=== PATIENT | male | born 1965 | race Caucasian/White ===

== ENCOUNTER 2016-10-28 20:06 | Inpatient (IN) | payer MEDICARE ==
[2016-10-28 21:09] LABS: BASO % 0.7 % (0.0-2.0); EOS # 0.2 K/uL (0.0-0.7); EOS % 5.4 % (0.0-4.0); HEMATOCRIT 19.5 % (35.0-51.0); LYMPH # 0.9 K/uL (1.0-4.3); LYMPH % 31.2 % (20.0-40.0); MEAN CELL VOLUME 88.3 fL (80.0-94.0); MEAN CORPUSCULAR HEMOGLOBIN 28.4 pg (27.0-31.0); MEAN CORPUSCULAR HGB CONC 32.1 g/dL (33.0-37.0); MEAN PLATELET VOLUME 7.1 fL (7.2-11.7); MONO # 0.2 K/uL (0.0-0.8); MONO % 7.4 % (0.0-10.0); WHITE BLOOD COUNT 2.9 K/uL (4.8-10.8)
[2016-10-28 21:14] LABS: POTASSIUM 5.3 mmol/L (3.6-5.2)
[2016-10-28 21:17] LABS: ALB/GLOB RATIO 1.4 (1.0-2.1); BILIRUBIN,TOTAL 0.8 mg/dL (0.2-1.3); TOTAL PROTEIN 7.2 g/dL (6.3-8.3)
[2016-10-28 21:18] LABS: CALCIUM 9.1 mg/dl (8.6-10.4)
[2016-10-28 21:29] LABS: TROPONIN I 0.016 ng/mL (0.00-0.120)
--- NOTE | 2016-10-28 22:19 | C.PDOC ---
Time Seen by Provider: 10/28/16 20:43 Chief Complaint (Nursing): Shortness Of Breath History Per: Patient Onset/Duration Of Symptoms: Hrs (since this morning) Current Symptoms Are (Timing): Still Present Initiating Event: Other (Missed dialysis today) Exacerbating Factor(s): Exertion, Laying Flat Severity: Moderate Additional History Per: Prior Records Past Medical History Reviewed: Historical Data, Nursing Documentation, Vital Signs Vital Signs: Last Vital Signs Temp 97.5 F L 10/28/16 20:26 Pulse 86 10/28/16 21:05 Resp 22 10/28/16 20:42 BP 166/70 H 10/28/16 21:05 Pulse Ox 100 10/28/16 21:05 - Medical History PMH: HTN, End Stage Renal Disease (on dialysis Tue//Tue.) Family History: States: Unknown Family Hx - Social History Hx Tobacco Use: No Hx Alcohol Use: No Hx Substance Use: No - Immunization History Hx Tetanus Toxoid Vaccination: No Hx Influenza Vaccination: No Hx Pneumococcal Vaccination: No Review Of Systems Except As Marked, All Systems Reviewed And Found Negative. Constitutional: Positive for: Malaise. Negative for: Fever Cardiovascular: Negative for: Chest Pain Respiratory: Positive for: Shortness of Breath. Negative for: Hemoptysis Gastrointestinal: Negative for: Vomiting, Abdominal Pain Musculoskeletal: Negative for: Neck Pain Skin: Negative for: Rash Neurological: Negative for: Weakness, Numbness, Seizures, Altered Mental Status , Headache Physical Exam - Physical Exam Appears: No Acute Distress, Chronically Ill Skin: Warm, Dry, Pale Head: Atraumatic, Normacephalic Eye(s): bilateral: PERRL, EOMI Neck: Normal ROM, Supple Cardiovascular: Rhythm Regular Respiratory: No Accessory Muscle Use, Rales (at b/l bases) Gastrointestinal/Abdominal: Soft, No Tenderness Extremity: Normal ROM, Other (Left arm dialysis fistula with good thrill) Neurological/Psych: Oriented x3, Normal Motor, Normal Sensation ED Course And Treatment - Laboratory Results Result Diagrams: 10/28/16 21:01 10/28/16 21:01 Lab Interpretation: Abnormal Interpretation Of Abnormal: Anemia. Elevated BUN and Cr. ECG: Interpreted By Me, Viewed By Me ECG Rhythm: Sinus Rhythm ECG Interpretation: No Acute Changes Rate From EC O2 Sat by Pulse Oximetry: 100 Pulse Ox Interpretation: Normal - Radiology CXR: Interpreted by Me, Viewed By Me CXR Interpretation: Yes: No Acute Disease Progress - Interventions Interventions:: Observation, Oxygen - Data Reviewed Data Reviewed: Lab, Diagnostic imaging, EKG, Old records - Patient Status Patient status: Partially improved - Continuity of Care Discussed patient case with:: Patient, ED Nurse, PMD Disposition Discussed With : Annika Valente Comment: He accepted pt on his service. He is planning on dialyzing pt in the AM and giving blood transfusion during dialysis. Doctor Will See Patient In The: Hospital Counseled Patient/Family Regarding: Studies Performed, Diagnosis - Disposition Disposition: HOSPITALIZED Disposition Time: 22:23 Condition: GUARDED - Clinical Impression Clinical Impression: Anemia, ESRD needing dialysis, Dyspnea
[2016-10-29] MEDS ORDERED: Epoetin Alfa 10,000 unit/ml Dialysis IV SCH (09:00)
[2016-10-29] MEDS: (Novolin 70/30) NPH/Regular 70/30 Units/ml 10 ml vial SC SCH ×2 (09:11→17:43)
--- NOTE | 2016-10-29 10:25 | RAD ---
PROCEDURE: CHEST RADIOGRAPH, 1 VIEW HISTORY: SOB, ESRD COMPARISON: None available. FINDINGS: There is a left subclavian endovascular stent graft. LUNGS: The lungs are clear. PLEURA: No pneumothorax or pleural fluid seen. CARDIOVASCULAR: Normal. OSSEOUS STRUCTURES: No significant abnormalities. VISUALIZED UPPER ABDOMEN: Normal. OTHER FINDINGS: None. IMPRESSION: No acute findings.
[2016-10-29 11:53] LABS: POTASSIUM 3.7 mmol/L (3.6-5.2)
[2016-10-29 11:55] LABS: BILIRUBIN,TOTAL 0.8 mg/dL (0.2-1.3)
[2016-10-29 11:56] LABS: ALB/GLOB RATIO 1.2 (1.0-2.1); CALCIUM 9.2 mg/dl (8.6-10.4); TOTAL PROTEIN 7.3 g/dL (6.3-8.3)
[2016-10-29 14:01] VITALS: O2SAT 100
[2016-10-29 15:50] VITALS: BP 173/83; RESP 20; TEMP 97.6
[2016-10-29 16:36] VITALS: PULSE 80
--- NOTE | 2016-10-29 17:32 | CP.PCM.HP ---
Past Patient History - Past Medical History & Family History Past Medical History?: Yes - Past Social History Smoking Status: Never Smoked - CARDIAC Hx Hypertension: Yes - PULMONARY Hx Respiratory Disorders: No - NEUROLOGICAL Hx Neurological Disorder: No - HEENT Hx HEENT Problems: No - RENAL Hx Chronic Kidney Disease: Yes Type of Dialysis Access: AV Shunt - ENDOCRINE/METABOLIC Hx Endocrine Disorders: Yes Hx Diabetes Mellitus Type 1: Yes - HEMATOLOGICAL/ONCOLOGICAL Hx Blood Disorders: No - INTEGUMENTARY Hx Dermatological Problems: No - MUSCULOSKELETAL/RHEUMATOLOGICAL Hx Musculoskeletal Disorders: No Hx Falls: No - GASTROINTESTINAL Hx Gastrointestinal Disorders: No - GENITOURINARY/GYNECOLOGICAL Hx Genitourinary Disorders: No - PSYCHIATRIC Hx Psychophysiologic Disorder: No Hx Substance Use: No - SURGICAL HISTORY Hx Surgeries: No - ANESTHESIA Hx Anesthesia: Yes Hx Anesthesia Reactions: No Hx Malignant Hyperthermia: No Has any member of the family had a problem w/ anesthesia?: No Meds Allergies/Adverse Reactions: Allergies Allergy/AdvReac Type Severity Reaction Status Date / Time No Known Allergies Allergy Verified 10/28/16 20:29 Physical Exam - Constitutional Appears: Well - Head Exam Head Exam: ATRAUMATIC, NORMAL INSPECTION, NORMOCEPHALIC - Eye Exam Eye Exam: EOMI, Normal appearance, PERRL Pupil Exam: NORMAL ACCOMODATION, PERRL - ENT Exam ENT Exam: Mucous Membranes Moist, Normal Exam - Neck Exam Neck exam: Positive for: Normal Inspection - Respiratory Exam Respiratory Exam: Decreased Breath Sounds - Cardiovascular Exam Cardiovascular Exam: REGULAR RHYTHM, +S1, +S2 - GI/Abdominal Exam GI & Abdominal Exam: Diminished Bowel Sounds, Soft - Rectal Exam Rectal Exam: Deferred Results - Vital Signs Recent Vital Signs: Last Vital Signs Temp 97.6 F 10/29/16 15:10 Pulse 80 10/29/16 15:30 Resp 20 10/29/16 15:10 BP 173/83 H 10/29/16 15:10 Pulse Ox 100 10/29/16 15:10 - Labs Result Diagrams: 10/28/16 21:01 10/29/16 11:27 Labs: Laboratory Results - last 24 hr 10/29/16 10/29/16 10/29/16 02:09 06:03 11:00 Sodium Potassium Chloride Carbon Dioxide Anion Gap BUN Creatinine Est GFR ( Amer) Est GFR (Non-Af Amer) POC Glucose (mg/dL) 254 H 163 H 190 H Random Glucose Calcium Total Bilirubin AST ALT Alkaline Phosphatase Total Protein Albumin Globulin Albumin/Globulin Ratio Hepatitis A IgM Ab Hep Bs Antigen Hep Bs Antibody Hep B Core IgM Ab Hepatitis C Antibody HIV 1&2 Antibody Screen 10/29/16 10/29/16 10/29/16 11:24 11:24 11:24 Sodium Potassium Chloride Carbon Dioxide Anion Gap BUN Creatinine Est GFR ( Amer) Est GFR (Non-Af Amer) POC Glucose (mg/dL) Random Glucose Calcium Total Bilirubin AST ALT Alkaline Phosphatase Total Protein Albumin Globulin Albumin/Globulin Ratio Hepatitis A IgM Ab Negative Hep Bs Antigen Negative Hep Bs Antibody Positive Hep B Core IgM Ab Negative Hepatitis C Antibody Reactive H HIV 1&2 Antibody Screen Reactive H 10/29/16 10/29/16 11:27 16:01 Sodium 143 Potassium 3.7 Chloride 103 Carbon Dioxide 26 Anion Gap 18 BUN 31 H Creatinine 5.9 H Est GFR ( Amer) 12 Est GFR (Non-Af Amer) 10 POC Glucose (mg/dL) 92 Random Glucose 151 H Calcium 9.2 Total Bilirubin 0.8 AST 21 ALT 33 Alkaline Phosphatase 63 Total Protein 7.3 Albumin 4.0 Globulin 3.3 Albumin/Globulin Ratio 1.2 Hepatitis A IgM Ab Hep Bs Antigen Hep Bs Antibody Hep B Core IgM Ab Hepatitis C Antibody HIV 1&2 Antibody Screen
--- NOTE | 2016-10-29 17:35 | CARD ---
APPROVED REPORT EKG Measurement Heart [id number] <Conclusion> Normal sinus rhythm Normal ECG
[2016-10-29 17:40] LABS: HEMATOCRIT 28.2 % (35.0-51.0)
[2016-10-30] MEDS ORDERED: Pneumococcal 23-Valent Vaccine IM ONE (10:00)
== END 2016-10-29 22:36 | disposition left against medical advice (07) | DRG 682 ==
LOC: C.ER 20:06 → C.6T 22:23
PROVIDERS: ADMIT Internal Medicine Nephrology; ATTEND Internal Medicine Nephrology
PROC: 5A1D60Z (ICD-10-PCS; principal; 2016-10-29)
PROC: 30233N1 Transfusion of Nonautologous Red Blood Cells into Peripheral Vein, Percutaneous Approach (ICD-10-PCS; 2016-10-29)
DX: I12.0 Hypertensive chronic kidney disease with stage 5 chronic kidney disease or end stage renal disease (principal); N18.6 End stage renal disease; D63.1 Anemia in chronic kidney disease; R06.00 Dyspnea, unspecified; Z99.2 Dependence on renal dialysis

== ENCOUNTER 2016-11-01 00:59 | Inpatient (IN) | payer MEDICARE ==
[2016-11-01] MEDS ORDERED: Albuterol 0.042% Inhal Sol (1.25 mg/3 mL) UD IH STA (01:45)
--- NOTE | 2016-11-01 01:49 | C.PDOC ---
History Of Present Illness A 50 y/o male presents to the ER c/o SOB that began 2 pm today. Pt notes having his last dialysis last tuesday. Pt denies pain, fever, chills, nausea, chest pain , light headedness, palpitations, or LOC. Time Seen by Provider: 11/01/16 01:47 Chief Complaint (Nursing): Chest Pain History Per: Patient History/Exam Limitations: no limitations Onset/Duration Of Symptoms: Hrs Current Symptoms Are (Timing): Still Present Severity: Mild Recent travel outside of the [place]: No Additional History Per: Patient Past Medical History Reviewed: Historical Data, Nursing Documentation, Vital Signs Vital Signs: Last Vital Signs Temp 98.2 F 11/01/16 05:30 Pulse 87 11/01/16 05:30 Resp 16 11/01/16 05:30 BP 157/75 H 11/01/16 05:30 Pulse Ox 100 11/01/16 05:30 - Medical History PMH: HTN, End Stage Renal Disease, Chronic Kidney Disease Family History: States: Unknown Family Hx - Social History Hx Tobacco Use: No Hx Alcohol Use: No Hx Substance Use: No - Immunization History Hx Tetanus Toxoid Vaccination: No Hx Influenza Vaccination: No Hx Pneumococcal Vaccination: No Review Of Systems Except As Marked, All Systems Reviewed And Found Negative. Constitutional: Negative for: Fever, Chills, Other (Pain) Cardiovascular: Negative for: Chest Pain, Palpitations, Light Headedness Respiratory: Positive for: Shortness of Breath Gastrointestinal: Negative for: Nausea, Vomiting Neurological: Negative for: Other (LOC) Physical Exam - Physical Exam Appears: Non-toxic, No Acute Distress Skin: Warm, Dry Head: Atraumatic, Normacephalic Eye(s): bilateral: Normal Inspection, PERRL, EOMI Chest: Symmetrical Cardiovascular: Rhythm Regular, No Murmur Respiratory: Decreased Breath Sounds, No Accessory Muscle Use, No Wheezing Gastrointestinal/Abdominal: Soft, No Tenderness, No Guarding, No Rebound Neurological/Psych: Oriented x3, Normal Speech, Normal Cognition ED Course And Treatment - Laboratory Results Result Diagrams: 11/01/16 02:06 11/01/16 02:06 O2 Sat by Pulse Oximetry: 96 (RA) Pulse Ox Interpretation: Normal - CT Scan/US CT Head w/o contrast Other Rad Studies (CT/US): Interpreted By Me, Read By Radiologist CT/US Interpretation: EXAM: CT Chest Without Intravenous Contrast. CLINICAL HISTORY: 50 years old, male; Signs and symptoms; Cough and shortness of breath ; Symptoms not specified;. Additional info: SOB, esrd. TECHNIQUE: Axial computed tomography images of the chest without intravenous contrast. This CT exam was. performed using one or more of the following dose reduction techniques: automated exposure. control, adjustment of the mA and/or kV according to patient size, and/or use of iterative. reconstruction technique. Coronal and sagittal reformatted images were created and reviewed. COMPARISON: No relevant prior studies available. FINDINGS: Lungs: There are small, right greater than left pleural effusions with associated bibasilar. compressive atelectasis. It is difficult to exclude a component of pneumonia or aspiration in the. bases. There are fairly diffuse groundglass opacities in the lungs, nonspecific but can be seen in. atypical infectious process, pulmonary edema, vascular or small airways disease. There is mild. biapical scarring. Pleural space: See above. Heart: There is mild coronary artery calcification. The heart is borderline in size. No significant. pericardial effusion. Mediastinum: The esophagus is normal. Thyroid: Thyroid is normal in size and position. Bones/joints: Unremarkable. No acute fracture. No dislocation. Soft tissues: Unremarkable. Vasculature: There is a left subclavian vein stent. Thoracic aorta is mildly atherosclerotic without. aneurysm. Lymph nodes: There is mild left axillary lymphadenopathy. There is mild mediastinal. lymphadenopathy. Kidneys and ureters: There appear to be multiple left cortical and parapelvic cysts. Upper abdomen: Scans through the upper abdomen demonstrate no definite acute abnormalities. IMPRESSION: 1. There is mild left axillary lymphadenopathy. 2. There is mild mediastinal lymphadenopathy. 3. There are small, right greater than left pleural effusions with associated bibasilar compressive. atelectasis. It is difficult to exclude a component of pneumonia or aspiration in the bases. 4. There are fairly diffuse groundglass opacities in the lungs, nonspecific but can be seen in atypical. infectious process, pulmonary edema, vascular or small airways disease. 5. Additional incidental and/or chronic findings as described. Medical Decision Making Medical Decision Making: Impression: 50 y/o male c/o SOB that occurred today Plans: -EKG -Blood labs -CXR -IV fluids -Reassess Disposition Discussed With : Annika Valente Doctor Will See Patient In The: Hospital Counseled Patient/Family Regarding: Diagnosis - Disposition Disposition: HOSPITALIZED Disposition Time: 05:12 Condition: STABLE - Clinical Impression Clinical Impression: ESRD (end stage renal disease) on dialysis, CHF (congestive heart failure), Pleural effusion - Scribe Statement The provider has reviewed the documentation as recorded by the Scribe Jaya josé All medical record entries made by the Ezekielibe were at my direction and personally dictated by me. I have reviewed the chart and agree that the record accurately reflects my personal performance of the history, physical exam, medical decision making, and the department course for this patient. I have also personally directed, reviewed, and agree with the discharge instructions and disposition.
[2016-11-01] MEDS ORDERED: Albuterol 0.083% Inhal Sol (2.5 mg/3 mL) UD ONE (02:23)
[2016-11-01 02:27] LABS: BASO % 0.7 % (0.0-2.0); EOS # 0.1 K/uL (0.0-0.7); EOS % 1.8 % (0.0-4.0); HEMATOCRIT 30.7 % (35.0-51.0); LYMPH # 1.2 K/uL (1.0-4.3); LYMPH % 23.8 % (20.0-40.0); MEAN CELL VOLUME 87.2 fL (80.0-94.0); MEAN CORPUSCULAR HEMOGLOBIN 28.5 pg (27.0-31.0); MEAN CORPUSCULAR HGB CONC 32.8 g/dL (33.0-37.0); MEAN PLATELET VOLUME 7.5 fL (7.2-11.7); MONO # 0.4 K/uL (0.0-0.8); MONO % 7.3 % (0.0-10.0); RED CELL DISTRIBUTION WIDTH 14.2 % (11.5-14.5); WHITE BLOOD COUNT 4.9 K/uL (4.8-10.8)
[2016-11-01 02:31] LABS: CHLORIDE 103 mmol/L (98-107); SODIUM 140 mmol/L (132-148)
[2016-11-01 02:33] LABS: BILIRUBIN,TOTAL 1.2 mg/dL (0.2-1.3); GFR AFRICAN-AMERICAN 7
[2016-11-01 02:34] LABS: ALB/GLOB RATIO 1.3 (1.0-2.1); ALKALINE PHOSPHATASE 63 U/L (38-126); ALT/SGPT 36 U/L (21-72); AST/SGOT 27 U/L (17-59); BLOOD UREA NITROGEN 54 mg/dL (9-20); CARBON DIOXIDE 18 mmol/L (22-30); GLUCOSE,RANDOM 76 mg/dL (75-110); TOTAL PROTEIN 7.7 g/dL (6.3-8.3)
[2016-11-01 02:35] LABS: CALCIUM 9.5 mg/dl (8.6-10.4)
--- NOTE | 2016-11-01 05:01 | CT ---
EXAM: CT Chest Without Intravenous Contrast CLINICAL HISTORY: 50 years old, male; Signs and symptoms; Cough and shortness of breath; Symptoms not specified; Additional info: SOB, esrd TECHNIQUE: Axial computed tomography images of the chest without intravenous contrast. This CT exam was performed using one or more of the following dose reduction techniques: automated exposure control, adjustment of the mA and/or kV according to patient size, and/or use of iterative reconstruction technique. Coronal and sagittal reformatted images were created and reviewed. COMPARISON: No relevant prior studies available. FINDINGS: Lungs: There are small, right greater than left pleural effusions with associated bibasilar compressive atelectasis. It is difficult to exclude a component of pneumonia or aspiration in the bases. There are fairly diffuse groundglass opacities in the lungs, nonspecific but can be seen in atypical infectious process, pulmonary edema, vascular or small airways disease. There is mild biapical scarring. Pleural space: See above. Heart: There is mild coronary artery calcification. The heart is borderline in size. No significant pericardial effusion. Mediastinum: The esophagus is normal. Thyroid: Thyroid is normal in size and position. Bones/joints: Unremarkable. No acute fracture. No dislocation. Soft tissues: Unremarkable. Vasculature: There is a left subclavian vein stent. Thoracic aorta is mildly atherosclerotic without aneurysm. Lymph nodes: There is mild left axillary lymphadenopathy. There is mild mediastinal lymphadenopathy. Kidneys and ureters: There appear to be multiple left cortical and parapelvic cysts. Upper abdomen: Scans through the upper abdomen demonstrate no definite acute abnormalities. IMPRESSION: 1. There is mild left axillary lymphadenopathy. 2. There is mild mediastinal lymphadenopathy. 3. There are small, right greater than left pleural effusions with associated bibasilar compressive atelectasis. It is difficult to exclude a component of pneumonia or aspiration in the bases. 4. There are fairly diffuse groundglass opacities in the lungs, nonspecific but can be seen in atypical infectious process, pulmonary edema, vascular or small airways disease. 5. Additional incidental and/or chronic findings as described.
[2016-11-01 06:37] VITALS: RESP 20
--- NOTE | 2016-11-01 10:20 | RAD ---
PROCEDURE: CHEST RADIOGRAPH, 1 VIEW HISTORY: Shortness of breath COMPARISON: None available. FINDINGS: LUNGS: Moderate venous congestion. PLEURA: No pneumothorax or pleural fluid seen. CARDIOVASCULAR: Normal. OSSEOUS STRUCTURES: No significant abnormalities. VISUALIZED UPPER ABDOMEN: Normal. OTHER FINDINGS: Left axillary stent in place. IMPRESSION: Moderate venous congestion.
[2016-11-01] MEDS ORDERED: INSULIN ISOPHANE SC SCH (12:00)
[2016-11-01] MEDS ORDERED: INSULIN REGULAR SC SCH (12:00)
--- NOTE | 2016-11-01 16:13 | CP.PCM.PN ---
Subjective - Date & Time of Evaluation Date of Evaluation: 11/01/16 Time of Evaluation: 16:12 - Subjective Subjective: 50 Y/O MALE SEEN AND EXAMINED TODAY BY DR HADDAD, 50 Y/O MALE ADMITTED FOR SOB, PMHX ESRD, ON HD, LAST HD ON TUESDAY, PT WAS DIALYZED TODAY, DENIES ANY CP,SOB, RESP EASY AND UNLABORED, PT D/C HOME PER DR HADDAD, EDUCATED TO CONTINUE HD T/ TH/SAT AT [facility], CONTINUE HOME MEDS, F/U W/DR HADDAD IN THE OFFICE, RETURN TO ED IF ANY WORSENING S/S, AGREE, VERBALIZE UNDERSTANDING. Objective - Vital Signs/Intake and Output Vital Signs (last 24 hours): Temp Pulse Resp BP Pulse Ox 98.3 F 92 H 20 165/75 H 100 11/01/16 10:35 11/01/16 10:35 11/01/16 10:35 11/01/16 10:35 11/01/16 10:35 - Medications Medications: Current Medications Amlodipine Besylate (Norvasc) 10 mg PO DAILY [facility] Last Admin: 11/01/16 12:29 Dose: 10 mg Insulin Human Isoph/Insulin Regular (Novolin 70/30 (70/30 Units/Ml) 10 Ml) 25 units SC BIDAC [facility] Pneumococcal Polyvalent Vaccine (Pneumovax 23 Vaccine) 0.5 ml IM .ONCE ONE Stop: 11/03/16 14:01 - Labs Labs: PT 11.3 SECONDS (9.7-12.2) 11/01/16 02:06 INR 1.0 11/01/16 02:06 APTT 31 SECONDS (21-34) 11/01/16 02:06
[2016-11-01] MEDS ORDERED: (Novolin 70/30) NPH/Regular 70/30 Units/ml 10 ml vial SC SCH (16:30)
[2016-11-01 16:31] VITALS: BP 159/71; PULSE 91; TEMP 98.2; O2SAT 94
[2016-11-01] MEDS ORDERED: Pneumococcal 23-Valent Vaccine IM ONE (17:08)
--- NOTE | 2016-11-01 17:37 | CP.PCM.HP ---
Past Patient History - Past Medical History & Family History Past Medical History?: Yes - Past Social History Smoking Status: Never Smoked - CARDIAC Hx Cardiac Disorders: Yes Hx Hypertension: Yes - PULMONARY Hx Respiratory Disorders: No - NEUROLOGICAL Hx Neurological Disorder: No - HEENT Hx HEENT Problems: No - RENAL Hx Chronic Kidney Disease: Yes Hx Dialysis: Yes Date of Last Dialysis Treatment: 11/01/16 - ENDOCRINE/METABOLIC Hx Endocrine Disorders: Yes Hx Diabetes Mellitus Type 1: Yes - HEMATOLOGICAL/ONCOLOGICAL Hx Blood Disorders: No - INTEGUMENTARY Hx Dermatological Problems: No - MUSCULOSKELETAL/RHEUMATOLOGICAL Hx Musculoskeletal Disorders: No Hx Falls: No - GASTROINTESTINAL Hx Gastrointestinal Disorders: No - GENITOURINARY/GYNECOLOGICAL Hx Genitourinary Disorders: No - PSYCHIATRIC Hx Psychophysiologic Disorder: No Hx Substance Use: No - SURGICAL HISTORY Hx Surgeries: Yes Hx Arteriovenous Shunt: Yes - ANESTHESIA Hx Anesthesia: Yes Hx Anesthesia Reactions: No Hx Malignant Hyperthermia: No Meds Allergies/Adverse Reactions: Allergies Allergy/AdvReac Type Severity Reaction Status Date / Time No Known Allergies Allergy Verified 10/28/16 20:29 Physical Exam - Constitutional Appears: Well - Head Exam Head Exam: ATRAUMATIC, NORMAL INSPECTION, NORMOCEPHALIC - Eye Exam Eye Exam: EOMI, Normal appearance, PERRL Pupil Exam: NORMAL ACCOMODATION, PERRL - ENT Exam ENT Exam: Mucous Membranes Moist, Normal Exam - Neck Exam Neck exam: Positive for: Normal Inspection - Respiratory Exam Respiratory Exam: Decreased Breath Sounds - Cardiovascular Exam Cardiovascular Exam: REGULAR RHYTHM, +S1, +S2 - GI/Abdominal Exam GI & Abdominal Exam: Diminished Bowel Sounds, Soft - Rectal Exam Rectal Exam: Deferred Results - Vital Signs Recent Vital Signs: Last Vital Signs Temp 98.2 F 11/01/16 16:29 Pulse 91 H 11/01/16 16:29 Resp 20 11/01/16 16:29 BP 159/71 H 11/01/16 16:29 Pulse Ox 94 L 11/01/16 16:29 - Labs Result Diagrams: 11/01/16 02:06 11/01/16 02:06 Labs: Laboratory Results - last 24 hr 11/01/16 11/01/16 11/01/16 06:31 11:41 16:32 POC Glucose (mg/dL) 94 75 270 H
--- NOTE | 2016-11-01 18:03 | PCM.HF ---
Heart Failure Core Measure - Heart Failure Left Ventricular Function to be assessed after discharge: Yes MOSHE Inhibitor Prescribed: No Contraindication/Reason for not providing: ESRD Beta-Rain Prescribed: None Contraindication/Reason for not providing: NOT RX BY MD Angiotensin II Receptor Rain Prescribed: No Contraindication/Reason for not providing: ESRD AnticoagulationTherapy for Atrial Fibrillation/Atrialflutter: No Contraindication/Reason for not providing: NO AFIB Aldosterone Antagonist Prescribed: No Contraindication/Reason for not providing: ESRD Hydralazine Nitrate Prescribed: No Implantable Cardioverter Defibrillator Therapy: No Contraindication/Reason for not providing: NOT INDICATED AT THIS TIME Cardiac Resynchronization Therapy Prescribed: No Contraindication/Reason for not providing: NOT INDICATED AT THIS TIME - Follow up Will be discharged to: Home Follow Up Date (must be within 7 days from discharge): 11/04/16 Follow Up Time: 09:00
--- NOTE | 2016-11-02 14:06 | CARD ---
APPROVED REPORT EKG Measurement Heart [id number] <Conclusion> Normal sinus rhythm Possible Left atrial enlargement Nonspecific ST abnormality Abnormal ECG
[2016-11-03] MEDS ORDERED: Pneumococcal 23-Valent Vaccine IM ONE (14:00)
== END 2016-11-01 18:10 | disposition home or self-care (01) | DRG 291 ==
LOC: C.ER 00:59 → C.6T 05:13
PROVIDERS: ADMIT Internal Medicine Nephrology; ATTEND Internal Medicine Nephrology
DX: I13.2 Hypertensive heart and chronic kidney disease with heart failure and with stage 5 chronic kidney disease, or end stage renal disease (principal); N18.6 End stage renal disease; I50.9 Heart failure, unspecified; Z99.2 Dependence on renal dialysis